=== PATIENT | male | born 1990 | race African-American/Black ===

== ENCOUNTER → 2019-04-14 | Outpatient (CLI) | payer OTHER ==
--- NOTE | 2019-04-14 15:18 | Diagnostic Imaging Report ---
CT MAXIO FAC/PARANAS WO HISTORY: Sinusitis COMPARISON: None. TECHNIQUE: Axial CT images through the face were obtained without contrast. Coronal/sagittal reformations were created. One or more of the following dose reduction techniques were used: Automated exposure control, adjustment of the mA and/or kV according to patient size, and/or utilization of iterative reconstruction technique. DISCUSSION: Mild to moderate scattered mucosal thickening is seen throughout the bilateral frontal sinuses, frontonasal recesses, ethmoid air cells, maxillary sinuses, sphenoid sinuses, sphenoethmoidal recesses, and middle meati (right greater than left). The nasal septum is slightly deviated to the left. No associated osseous destruction is seen. Both middle turbinates are partially pneumatized. No acute fracture is seen. No destructive osseous lesions are seen. The orbits are intact. Intraorbital contents are grossly unremarkable. Otherwise, the visualized soft tissues and intracranial compartment are grossly unremarkable. IMPRESSION: Nonspecific mild to moderate scattered bilateral paranasal sinus and nasal cavity mucosal thickening, right greater than left. Signed by: Dr. Hugo Perez M.D. on 04/14/2019 3:15 PM
--- NOTE | 2019-04-14 15:29 | Diagnostic Imaging Report ---
EXAMINATION: CHEST 2 VIEWS INDICATION: Sinusitis COMPARISON: None FINDINGS: LINES/TUBES:None LUNGS:The lungs are well-inflated. No focal consolidation or pulmonary edema. PLEURA:No pleural effusion or pneumothorax. MEDIASTINUM:The cardiomediastinal silhouette appears normal in size and shape. BONES/SOFT TISSUES:No acute osseous injury. ABDOMEN:No free air under the diaphragm. IMPRESSION: No focal pneumonia or pulmonary edema. Signed by: Vickie Hernández MD on 04/14/2019 3:26 PM
--- NOTE | 2019-04-14 15:31 | Diagnostic Imaging Report ---
EXAMINATION: ANKLE BILATERAL COMPLETE INDICATION: Osteoarthritis COMPARISON: None FINDINGS: Right ankle: No acute fracture or dislocation. Alignment is anatomic. The ankle mortise is intact and symmetric. No substantial joint effusion. No substantial degenerative change. Soft tissues appear unremarkable. Left ankle: No acute fracture or dislocation. Alignment appears anatomic. The ankle mortise is intact and symmetric. Cortical regularity on the lateral aspect of the distal tibia may be related to remote healed trauma. No substantial joint effusion. No substantial degenerative change. The soft tissues appear unremarkable. IMPRESSION: No acute osseous injury. No substantial degenerative change. Signed by: Vickie Hernández MD on 04/14/2019 3:28 PM
--- NOTE | 2019-04-14 15:33 | Diagnostic Imaging Report ---
EXAMINATION: KNEE THREE VIEWS BILATERAL INDICATION: Osteoarthritis COMPARISON: None FINDINGS: Right knee: No acute fracture or dislocation. Alignment is anatomic. No substantial degenerative change. No joint effusion. Left knee: No acute fracture or dislocation. Alignment is anatomic. No substantial degenerative change. No joint effusion. IMPRESSION: No acute osseous injury of either knee. No substantial degenerative change. Signed by: Vickie Hernández MD on 04/14/2019 3:30 PM
--- NOTE | 2019-04-14 15:34 | Diagnostic Imaging Report ---
EXAMINATION: SP LUMBAR, COMPLETE MIN 4VW INDICATION: Back pain COMPARISON: None FINDINGS: No compression fracture. Vertebral body heights are well-maintained. Alignment is anatomic. No substantial degenerative change. Nonobstructive bowel gas pattern. No free air. IMPRESSION: Anatomic alignment of the lumbar spine without acute osseous injury. No substantial degenerative change. Signed by: Vickie Hernández MD on 04/14/2019 3:31 PM
== END ==
LOC: CT 12:40
PROVIDERS: ATTEND Emergency Medicine
DX: J32.9 Chronic sinusitis, unspecified (principal); R05 Cough; M17.0 Bilateral primary osteoarthritis of knee; M19.072 Primary osteoarthritis, left ankle and foot; M19.071 Primary osteoarthritis, right ankle and foot; M47.897 Other spondylosis, lumbosacral region
CPT/HCPCS: 70486; 71046; 72110